=== PATIENT | male | born 1995 | race African-American/Black ===

== ENCOUNTER 2017-06-14 02:45 | Emergency (ER) | payer SELFPAY ==
[2017-06-14] MEDS: 0.9 % SODIUM CHLORIDE 1,000 ML IV ONE ×2 (02:55→04:38)
[2017-06-14 03:11] LABS: BASOPHILS % 0.5 (0.0-1.5); EOSINOPHILS % 2.1 % (0.0-6.8); MEAN CORPUSCULAR HEMOGLOBIN 30.3 pg (28.0-34.0); MEAN CORPUSCULAR VOLUME 91.3 fl (80.0-100.0); NEUTROPHILS # 3.9 # k/uL (1.4-7.7)
[2017-06-14 03:22] LABS: eGFR (African) > 60; eGFR (Non-African) > 60
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
[2017-06-14] MEDS: fentaNYL CITRATE/PF 100 MCG/ 2ML AMP IVP ONE (04:11)
[2017-06-14 05:38] VITALS: BP 120/82
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
== END 2017-06-14 04:40 | disposition short-term general hospital (02) ==
LOC: ED 02:45
DX: S63.054A Dislocation of other carpometacarpal joint of right hand, initial encounter (principal); X58.XXXA Exposure to other specified factors, initial encounter; Y93.9 Activity, unspecified; Y99.9 Unspecified external cause status
CPT/HCPCS: 73130; 80053; 80320; 85025; 96361; 96374; 99284; J3010; G0480; J7030; S1016